=== PATIENT | male | born 1950 | race Caucasian/White ===

== ENCOUNTER 2023-05-21 12:56 | Outpatient (REF) | payer MEDICARE, SELFPAY ==
--- NOTE | 2023-05-21 11:15 | PAPNONF_PTH ---
PATIENT: Wolf Nava LOC: [facility] U#:[id number] AGE/SX: 72/M ROOM: RE05/21/[address]: Derrick Bustos MD : 1950 BED: DIS: 05/21/2023 SPEC #: [id number] RECD: 05/21/23 13:04 STATUS: THELMA RERowdy #: [id number] SARIKA: 05/21/23 11:[address]: Derrick Bustos DEPT: [facility] Cytology RECD BY: Madiha Mariee ENTERED: 05/21/23 13:05 SP TYPE: STEPHANIE HILL DR: Sky Hancock Tissues: 1 - BODY FLUID CYTO-FINE NEEDLE ASPIRATE-[facility] 2 - FLOW CYTOMETRY NODE/TISSUE Procedures: FLOW CYTOMETRY LYMPHOMA PNL BODY FLUID CYTO-FINE NEEDLE ASPIRATE-[facility] Comments: [id number] (FLOW CYTOMETRY - [id number]) (REFRIGERATED)
== END 2023-05-21 12:57 | disposition home or self-care (01) ==
LOC: LBN 12:56
PROVIDERS: PCP Physician Assistant; Visit Provider Otolaryngology
DX: R22.1 Localized swelling, mass and lump, neck (principal)
CPT/HCPCS: 88104; 88184; 88185

== ENCOUNTER 2023-05-30 08:24 | Outpatient (REF) | payer MEDICARE, SELFPAY ==
--- NOTE | 2023-05-30 07:45 | LYM_PTH ---
PATIENT: Wolf Nava LOC: [place] U#:[id number] AGE/SX: 72/M ROOM: RE05/30/[address]: Derrick Bustos MD : 1950 BED: DIS: 05/30/2023 SPEC #: [id number] RECD: 05/30/23 13:03 STATUS: THELMA REQ #: [id number] SARIKA: 05/30/23 07:[address]: Derrick Bustos DEPT: Surgical Specimen RECD BY: Madiha Mariee ENTERED: 05/30/23 13:05 SP TYPE: LYM OTHR DR: Sky Hancock Tissues: 1 - LYMPH NODE BIOPSY 2 - FLOW CYTOMETRY NODE/TISSUE Procedures: GROSS AND MICRO LEVEL 4 IMMUNOPEROXIDASE STAIN Single Probe In Situ Hybridization MIB-1 IHC Semi Quantative % FLOW CYTOMETRY LYMPHOMA PNL Comments: [id number] (FLOW CYTOMETRY - [id number])
== END 2023-05-30 08:25 | disposition home or self-care (01) ==
LOC: LBN 08:24
PROVIDERS: PCP Physician Assistant; Visit Provider Otolaryngology
DX: C83.31 Diffuse large B-cell lymphoma, lymph nodes of head, face, and neck (principal)
CPT/HCPCS: 88305; 88360; 88368; 88184; 88185; 88361

== ENCOUNTER 2023-06-11 08:08 | Day surgery (SDC) | payer MEDICARE, SELFPAY ==
[2023-06-11 08:35] VITALS: BP 141/78; PULSE 63; RESP 18; TEMP 36.2; O2SAT 100
[2023-06-11] MEDS: Lidocaine 1% Pres-Free W/EPI 1/200,000 10 ML VIAL (11:26)
--- NOTE | 2023-06-11 11:58 | W.PM.DSUDISC ---
Date of service: 06/11/23 Time of Service: 11:59 Discharge Plan Disposition Condition: Good Discharge Details Reason For Visit: Lymph node biopsy, cervical, deep Attending Provider: Derrick Bustos Primary Care Provider: Sky Hancock Home Meds and New Rx's Prescriptions: No Action No Known Home Meds Discharge Instructions Additional Instructions: Leave dressing intact until tomorrow after your shower and then remove and do not replace. After removal of the dressing, you can get the wound wet. You may shower with the dressing on today. Use ibuprofen or Tylenol for any discomfort if needed. Call with any excess swelling, or signs of infection. Please call my office if you do not hear from me within 1 week with regard to pathology results.
[2023-06-11 12:00] VITALS: BP 142/80; PULSE 54; RESP 16; TEMP 36; O2SAT 98
--- NOTE | 2023-06-11 12:01 | W.PM.OP ---
Date of service: 06/11/23 Time of Service: 12:01 Operative Note Operative Note DATE OF PROCEDURE: 06/11/23 PRE-OP DIAGNOSIS: Lymphadenopathy-cervical POST-OP DIAGNOSIS: same PROCEDURE: Biopsy, deep lymph node, left submandibular triangle SURGEON: Derrick Bustos MASTER CERTIFIED RV TECHNICIAN: Katarzyna Cano ANESTHESIA TYPE: Local By Surgeon Refer to Anesthesia Record ESTIMATED BLOOD LOSS: 1 PATHOLOGY: other (Lymph node biopsy, left neck) COMPLICATIONS: None Patient was transported to: PACU Patient's condition: stable Indications: Patient with a left-sided large isolated lymph node with FNA consistent with B-cell lymphoma, core biopsy consistent with T-cell lymphoma, more specimen requested by pathology. Options were explained to the patient regarding further management. Risks were discussed at length. Consent was obtained. He wished to proceed. Findings: Large lymph node, left neck, 4 cm diameter, no surrounding inflammatory reaction, tense capsule, internal contents mushy and friable Procedure Description: The patient was positioned in supine position with his head turned to the right. He was prepped and draped in appropriate fashion. 1% lidocaine with 1/100,000 epinephrine was injected into the skin and subcutaneous tissues and also underneath the platysma. A 2 cm skin incision was made over the neck mass, and blunt dissection continued down to the platysma which was then entered, and divided carefully, taking care not to damage the marginal mandibular nerve. The capsule of the lymph node was encountered, and incised. Lymph node biopsy was removed and split between formalin, CytoLyt, and saline. The wound was inspected revealing relative hemostasis. The wound was then closed in a single layer of inverted interrupted four-point 0 Monocryl sutures. Sterile dressing was applied. The patient was able to ambulate afterwards without difficulty. He noted no discomfort.
--- NOTE | 2023-06-11 12:55 | LYM_PTH ---
PATIENT: Wolf Nava LOC: [facility] U#:[id number] AGE/SX: 72/M ROOM: RE06/11/[address]: Derrick Bustos MD : 1950 BED: DIS: 06/11/2023 SPEC #: [id number] RECD: 06/11/23 13:04 STATUS: THELMA REQ #: [id number] SARIKA: 06/11/23 12:[address]: Derrick Bustos DEPT: Surgical Specimen RECD BY: Madiha Mariee ENTERED: 06/11/23 13:07 SP TYPE: LYM OTHR DR: Sky Hancock Tissues: 1 - LYMPH NODE BIOPSY 2 - FLOW CYTOMETRY NODE/TISSUE Procedures: GROSS AND MICRO LEVEL 4 IMMUNOPEROXIDASE STAIN FISH DNA Probe Single Probe In Situ Hybridization FLOW CYTOMETRY LYMPHOMA PNL Comments: [id number] (FLOW - [id number]) ([id number])
== END 2023-06-11 12:29 | disposition home or self-care (01) ==
PROVIDERS: PCP Physician Assistant; Visit Provider Otolaryngology
PROC: (CPT 42410; principal; 2023-06-11 11:15)
DX: C83.31 Diffuse large B-cell lymphoma, lymph nodes of head, face, and neck (principal)
CPT/HCPCS: 38510; 88271; 88305; 88368; 88184; 88185; 88361

== ENCOUNTER 2023-07-18 17:00 | Outpatient (CLI) | payer MEDICARE, SELFPAY ==
[2023-07-18 17:19] LABS: Abs Immature Grans 0.01 10^3/uL (0.0-0.06); Absolute Basophil Count 0.06 10^3/uL (0.0-0.2); Absolute Eosinophil Count 0.32 10^3/uL (0.0-0.7); Absolute Lymphocyte Count 0.94 10^3/uL (1.2-3.4); Absolute Monocyte Count 0.43 10^3/uL (0.1-0.8); Absolute Neutrophil Count 3.23 10^3/uL (1.2-6.7); Basophils % 1.2; Eosinophils % 6.4; HCT 33.1 % (40.0-50.0); HGB 10.4 g/dL (13.5-17.5); Immature Grans % 0.2; Lymphocytes % 18.8; MCHC 31.4 % (32.0-36.0); MCV 76 fL (80-95); Monocytes % 8.6; Neutrophils % 64.8; Platelet Count 268 10^3/uL (130-400); RBC 4.33 10^6/uL (4.36-5.78); RDW 20.2 % (11.8-14.1); RDW-SD 55.5 fL; WBC 4.99 10^3/uL (4.4-10.8)
[2023-07-18 17:32] LABS: ALT 32 U/L (16-63); AST 32 U/L (15-37); Albumin 3.8 g/dL (3.4-5.0); Alkaline Phosphatase 76 U/L (46-116); Anion Gap 6.5 mmol/L (3-11); BUN 25 mg/dL (7-18); Bilirubin, Total 0.3 mg/dL (0.2-1.0); CO2 28.5 mmol/L (21.0-32.0); Chloride 104 mmol/L (98-107); Estimated GFR 79.97 (mL/min/1.73m2); Glucose 104 mg/dL (74-106); LDH 168 U/L (85-227); Potassium 3.5 mmol/L (3.5-5.1); Sodium 139 mmol/L (136-145); Total Protein 7.7 g/dL (6.4-8.2)
[2023-07-18 17:38] LABS: Diff Comment Diff Reviewed
[2023-07-18 17:39] LABS: Anisocytosis 2+
== END 2023-07-18 17:01 | disposition home or self-care (01) ==
LOC: LBO 17:03
PROVIDERS: PCP Physician Assistant; Visit Provider Nurse Practitioner Adult Health
DX: C83.38 Diffuse large B-cell lymphoma, lymph nodes of multiple sites (principal)
CPT/HCPCS: 36415; 80053; 83615; 85025

== ENCOUNTER 2023-08-08 02:01 | Outpatient (RCR) | payer MEDICARE, SELFPAY ==
[2023-08-01] MEDS: Heparin 500 UNITS/5 ML SYRINGE IV (09:20)
[2023-08-01] MEDS: Normal Saline Flush 10 ML SYR IVP (09:20)
[2023-08-01 09:53] LABS: ALT 52 U/L (16-63); AST 32 U/L (15-37); Albumin 3.6 g/dL (3.4-5.0); Alkaline Phosphatase 85 U/L (46-116); BUN 14 mg/dL (7-18); Bilirubin, Total 0.4 mg/dL (0.2-1.0); CREATININE 0.8 mg/dL (0.70-1.30); Calcium 9.3 mg/dL (8.5-10.1); Chloride 103 mmol/L (98-107); Estimated GFR 93.45 (mL/min/1.73m2); Glucose 204 mg/dL (74-106); LDH 181 U/L (85-227); Potassium 3.9 mmol/L (3.5-5.1); Sodium 138 mmol/L (136-145); Total Protein 7.2 g/dL (6.4-8.2)
[2023-08-01 09:54] LABS: Absolute Basophil Count 0.04 10^3/uL (0.0-0.2); Absolute Eosinophil Count 0.03 10^3/uL (0.0-0.7); Absolute Lymphocyte Count 0.61 10^3/uL (1.2-3.4); Absolute Monocyte Count 0.38 10^3/uL (0.1-0.8); Absolute Neutrophil Count 3.46 10^3/uL (1.2-6.7); Basophils % 0.8; Eosinophils % 0.6; HCT 30.3 % (40.0-50.0); HGB 9.7 g/dL (13.5-17.5); Immature Grans % 4.2; Lymphocytes % 12.9; MCH 24.1 pg (27.0-33.0); MCV 75 fL (80-95); Monocytes % 8.1; Neutrophils % 73.4; Platelet Count 270 10^3/uL (130-400); RBC 4.03 10^6/uL (4.36-5.78); RDW 21.5 % (11.8-14.1); RDW-SD 52.7 fL; WBC 4.72 10^3/uL (4.4-10.8)
[2023-08-08] MEDS: Normal Saline Flush 10 ML SYR IVP (10:56)
[2023-08-08 11:06] LABS: Abs Immature Grans 0.05 10^3/uL (0.0-0.06); Absolute Basophil Count 0.06 10^3/uL (0.0-0.2); Absolute Eosinophil Count 0.02 10^3/uL (0.0-0.7); Absolute Lymphocyte Count 0.43 10^3/uL (1.2-3.4); Absolute Monocyte Count 0.73 10^3/uL (0.1-0.8); Absolute Neutrophil Count 5.14 10^3/uL (1.2-6.7); Basophils % 0.9; Eosinophils % 0.3; HCT 29.5 % (40.0-50.0); HGB 9.4 g/dL (13.5-17.5); Immature Grans % 0.8; Lymphocytes % 6.7; MCH 24.7 pg (27.0-33.0); MCHC 31.9 % (32.0-36.0); MCV 78 fL (80-95); MPV 10.5 fL (8.0-11.0); Monocytes % 11.4; Neutrophils % 79.9; Platelet Count 471 10^3/uL (130-400); RDW-SD 65.7 fL; WBC 6.43 10^3/uL (4.4-10.8)
[2023-08-08 11:22] LABS: ALT 32 U/L (16-63); AST 26 U/L (15-37); Albumin 3.3 g/dL (3.4-5.0); Alkaline Phosphatase 85 U/L (46-116); Anion Gap 8.8 mmol/L (3-11); BUN 18 mg/dL (7-18); Bilirubin, Total 0.5 mg/dL (0.2-1.0); CO2 27.2 mmol/L (21.0-32.0); CREATININE 0.9 mg/dL (0.70-1.30); Calcium 9.1 mg/dL (8.5-10.1); Chloride 103 mmol/L (98-107); Estimated GFR 90.18 (mL/min/1.73m2); Glucose 169 mg/dL (74-106); LDH 168 U/L (85-227); Potassium 3.8 mmol/L (3.5-5.1); Sodium 139 mmol/L (136-145); Total Protein 7.1 g/dL (6.4-8.2)
[2023-08-08 11:25] LABS: Anisocytosis 2+; Diff Comment RBC Morph Reviewed; Microcytosis 1+; Poikilocytes 1+; Polychromasia Present
[2023-08-08 11:36] LABS: Total Iron Binding Capacity 341 ug/dL (250-450)
[2023-08-08 11:59] LABS: Ferritin 40 ng/mL (26-388); Vitamin B12 > 2000 pg/mL (193-986)
== END 2023-08-23 23:59 | disposition home or self-care (01) ==
LOC: INF 02:01
PROVIDERS: Nurse Practitioner Adult Health; PCP Physician Assistant; Visit Provider Internal Medicine Hematology & Oncology
DX: D64.9 Anemia, unspecified (principal); C83.38 Diffuse large B-cell lymphoma, lymph nodes of multiple sites; Z45.2 Encounter for adjustment and management of vascular access device
CPT/HCPCS: 36591; 80053; 82607; 82728; 82746; 83550; 83615; 85025